=== PATIENT | male | born 1940 | race Caucasian/White ===

== ENCOUNTER 2017-06-30 05:55 | Inpatient (IN) | payer MEDICARE ==
[2017-06-30] VITALS (13 sets, daily range): BP systolic 113–138; BP diastolic 72–90; PULSE 70–82; RESP 13–20; O2SAT 88–98
[~2017-06-30] VITALS: Ht 180.3 cm; Wt 104.2 kg
[~2017-06-30 05:55] MED LIST: ATEN50TA PO; HYDR-3825 PO; Lactated Ringer's 1,000 ML IV SCH; NABU750T PO; SIMV10TA4 PO
[2017-06-30] MEDS: DEXTROSE 5% IV SCH ×2 (06:00→07:44)
[2017-06-30] MEDS ORDERED: Ampicillin-Sulbactam 3,000 mg/100 mL NS IV ONE ×2 (06:00)
[2017-06-30] MEDS: GENTAMICIN IV SCH ×2 (06:00→07:44)
[2017-06-30] MEDS ORDERED: Lactated Ringer's 1,000 ML IV ONE ×3 (06:19→16:10)
[2017-06-30] MEDS ORDERED: Dexamethasone 4 mg/mL Inj ONE (07:00)
[2017-06-30] MEDS ORDERED: Ondansetron 2 mg/mL 2 mL Inj ONE (07:00)
[2017-06-30] MEDS ORDERED: Vasopressin 20 Unit/mL Inj ONE (07:00)
[2017-06-30] MEDS ORDERED: Rocuronium 10 mg/mL 5 mL Inj ONE (07:00)
[2017-06-30] MEDS ORDERED: fentaNYL-PF 50 mCg/mL 2 mL Inj ONE (07:00)
[2017-06-30] MEDS ORDERED: MeTOProlol 1 mg/mL 5 mL Inj ONE (07:00)
[2017-06-30] MEDS ORDERED: HYDROmorphone 1 mg/mL Inj ONE (07:00)
[2017-06-30] MEDS ORDERED: Propofol 10 mg/mL 20 mL Inj ONE (07:00)
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
[2017-06-30] MEDS ORDERED: Lactated Ringer's 1,000 ML IV SCH (08:45)
[2017-06-30] MEDS ORDERED: MetoCLOpramide 5 mg/mL 2 mL Inj IVPUSH PRN (08:45)
[2017-06-30] MEDS ORDERED: EPHEDrine Sulfate 50 mg/mL Inj IVPUSH PRN (08:45)
[2017-06-30] MEDS ORDERED: Phenylephrine 10,000 mCg/mL Inj IVPUSH PRN (08:45)
[2017-06-30] MEDS ORDERED: Dexamethasone 4 mg/mL Inj IVPUSH PRN (08:45)
[2017-06-30] MEDS ORDERED: Lactated Ringer's 500 ML IV PRN (08:45)
[2017-06-30] MEDS ORDERED: Ondansetron 2 mg/mL 2 mL Inj IVPUSH PRN (08:45)
[2017-06-30] MEDS ORDERED: Bupivacaine-MPF 0.5% 30 mL Inj INFILTRATE ONE (09:04)
[2017-06-30 10:21] LABS: APPEARANCE,URINE HAZY (CLEAR,HAZY); COLOR,URINE YELLOW (YELLOW); OCCULT BLOOD,URINE NEGATIVE (NEGATIVE)
[2017-06-30 10:23] LABS: UROBILINOGEN,URINE NORMAL (NORMAL)
--- NOTE | 2017-06-30 15:42 | PCM.ANEP1 ---
Post Anesthesia PACU Phase 1 Assessment Anesthetic Administered: GA Level of Alertness: Drowsy, not talking Pain: No Nausea or Vomiting: No CV Function & Hydration Stable: Yes Airway Device: Oxygen Delivery: Simple Mask Lungs: Clear to Auscultation, Normal Air Movement Dermatome Level: Full Sensation PACU Phase 2 Assessment Complications: No Follow up Care: No Patient Instructions Provided: N/A Flex Hwang MD Jun 30, 2017 15:42
[2017-06-30] MEDS: fentaNYL-PF 50 mCg/mL 2 mL Inj IVPUSH PRN ×3 (15:57→17:00)
--- NOTE | 2017-06-30 15:59 | PCM.SURGPO ---
Immediate Operative Note Date of Surgery: Jun 30, 2017 Pre Operative Diagnosis L renal mass Post Operative Diagnosis L renal mass Procedure L laparoscopic radical nephrectomy (modifier 22) Surgeon and Scruff Worker Surgeon: David Baer MD Assistants: Natasha Loo MD; Reshma Garcia Findings No gross extension of tumor seen outside of L kidney. L laparoscopic radical nephrectomy was performed. Of note, case was very difficult secondary to significant amount of fibrosis seen around kidney and complex renal hilum. Complications There were no periprocedural complications identified. Surgical Specimen Removed: Yes Specimen sent to Pathology: Yes Surgical Specimen description: L kidney Anesthetic Administered: GA Grafts, Implants: Other (16F Hernandez catheter to straight drainage) Output, Estimated Blood Loss: 400 Blood Admin during surgery: No Additional information Patient to be transferred to [facility] when stable. David Baer MD Jun 30, 2017 15:59
[2017-06-30] MEDS: HYDROmorphone 1 mg/mL Inj IVPUSH PRN ×3 (16:08→16:41)
[2017-06-30 16:35] LABS: Mean Corpuscular Hemoglobin 28.8 pg (27.0-35.0); Mean Corpuscular Volume 90.9 fL (81-100)
[2017-06-30] MEDS: 0.9% Sodium Chloride 1,000 ML IV SCH (16:44)
[2017-06-30] MEDS ORDERED: CHOL200047 PO (18:02)
[2017-06-30] MEDS ORDERED: FISH1CAP15 PO (18:02)
[2017-06-30] MEDS ORDERED: VIT1TABL83 PO (18:03)
[2017-06-30] MEDS ORDERED: VITA400C64 PO (18:03)
[2017-06-30] MEDS ORDERED: MULT-666 PO (18:03)
[2017-06-30] MEDS ORDERED: ASCO-294 PO (18:03)
[2017-06-30] MEDS ORDERED: UBID300C PO (18:05)
[2017-06-30] MEDS ORDERED: MAGN400C PO (18:05)
--- NOTE | 2017-06-30 18:06 | NUR ---
Received from OR Patient transferred from OR. Report received from PACU nurse. Patient is returning from a left lap nephrectomy. Patient is drowsy, but easily woken. Hernandez catheter intact and patent, draining clear yellow urine. Patient has multiple lap sits on his left abdomen. Dressed with steri-strips and Telfa, clean/dry/intact. O2 @ 4L. Current diet is NPO with sips of water and ice. Progress to clear liquid diet in AM. Patient has some redness and swelling on his right cheek and around his eyes. No pain at this time.
--- NOTE | 2017-06-30 18:13 | NUR ---
Admit nurse note Admission assessment completed with 's assistance. Pt. c/o 8/10 pain. He is resting quietly. Med history obtained from chart and verified with . Nonslip socks in place. Pt. oriented to room, call fraga and fall precautions. ANDRIY ureña. Report given to Yousuf Soria.
[2017-06-30] MEDS: oxyCODONE-Acetamin 5-325 mg Tablet PO PRN (18:25)
[2017-06-30] MEDS: Ampicillin-Sulbactam Inj 3,000 MG in 0.9% Sodium Chloride 100 ML IV SCH ×2 (18:25→22:54)
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
--- NOTE | 2017-06-30 21:27 | DRSVH ---
PROCEDURE: X-RAY CHEST ONE VIEW, PORTABLE ([id number]) INDICATIONS: HYPOXIA TECHNIQUE: One view of the chest was acquired. COMPARISON: [facility], CT, ABDOMEN W&WO CONTRAST, 05/09/2017, 8:05. Outside Facility, RG, XR C XR 1V, 01/11/2017, 13:56. [facility], CR, CHEST 2 VIEW, 02/15/2017, 13:57. FINDINGS: Surgical changes and devices: None. Lungs and pleura: No pleural effusions or pneumothorax. Low lung volumes and scattered atelectasis. No focal consolidation. Probable bowel loop projecting in the medial right upper quadrant Mediastinum: Mediastinal contours appear normal. Heart size is normal. Bones and chest wall: No suspicious bony lesions. Overlying soft tissues appear unremarkable. Bila teral shoulder joint degeneration IMPRESSION: Low lung volumes and scattered scarring/atelectasis. Dictated by: Douglas Peterson M.D. on 06/30/2017 at 21:18 Approved by: Douglas Peterson M.D. on 06/30/2017 at 21:26
[2017-06-30] MEDS: Morphine PCA 1 mg/mL 30 mL Inj IV PRN (22:11)
[2017-06-30] MEDS ORDERED: 0.9% Sodium Chloride 100 ML ONE (22:32)
[2017-07-01] VITALS (9 sets, daily range): BP systolic 102–137; BP diastolic 65–87; PULSE 60–91; RESP 16–28; O2SAT 92–97
[2017-07-01] MEDS: 0.9% Sodium Chloride 1,000 ML IV SCH ×4 (01:48→21:26)
[2017-07-01 05:27] LABS: Mean Corpuscular Volume 90.8 fL (81-100)
[2017-07-01] MEDS: Ampicillin-Sulbactam Inj 3,000 MG in 0.9% Sodium Chloride 100 ML IV SCH ×3 (06:39→16:09)
--- NOTE | 2017-07-01 07:28 | PCM.PNSURG ---
Subjective Visit Information: Reason for Visit Left Renal Mass Surgery/Surgery Date Post-Op Day # Date of Admission: Jun 30, 2017 at 17:29 Hospital Day # Objective Vital Sign- Last 8 Hours Date Time Temp Pulse Resp B/P Pulse Ox O2 Delivery O2 Flow Rate FiO2 07/01/17 04:46 36.8 68 28 105/67 97 Nasal Cannula 4.00 07/01/17 00:32 36.9 67 20 102/66 97 Nasal Cannula 4.00 Intake and Output- Last 8 Hour 07/01/17 Cumulative From/Thru 07:00 06/24/17 14:26 - 07/01/17 01:16 Intake Total 130 ml 1935 ml Output Total 900 ml Balance 130 ml 1035 ml Intake IV Total 130 ml 1935 ml Output Urine Total 100 ml Estimated Blood Loss 800 ml Result Diagram: 07/01/17 0455 07/01/17 0455 Assessment & Plan VTE Prophylaxis: SCDs Resuscitation Status: CPR: Attempt Resuscitation David Baer MD Jul 01, 2017 07:28
--- NOTE | 2017-07-01 07:59 | NUR ---
Pain Pt reported pain 8/10, oral percocet had been given upon arrival to unit. MD phoned and stated use the DRIVER [employer]IC morphine. Set up, Pt was given IV push dose prior to set up with + results, after starting DR[employer] Pt pain controlled at 5/10. Pt on CPOx and 3-4L o2.Sat 94-96%. at bedside. Pt tolerating clear diet. Care continues
[2017-07-01] MEDS ORDERED: Sodium Biphos-Phos 133 mL Enema RECTAL ONE (12:00)
--- NOTE | 2017-07-01 14:04 | NUR ---
Gas Pain Contacted Dr. Casiano with the following cook page: Patient reports gas pain, but no flatulence, he is requesting medication for the gas pain. No nausea at this time, he stated Reglan does not work. Please advise. Lori [facility] ext [phone]
[2017-07-01] MEDS: Polyethylene Glycol (PEG) 17 Gm Powder PO PRN (14:36)
[2017-07-01] MEDS: Ondansetron 2 mg/mL 2 mL Inj IVPUSH PRN (14:36)
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
[2017-07-01] MEDS: Morphine PCA 1 mg/mL 30 mL Inj IV PRN (15:59)
[2017-07-01] MEDS: Alum-Mag Hydrox-Simeth 30 mL Suspension PO PRN (16:09)
--- NOTE | 2017-07-01 16:15 | PCM.PNSURG ---
Subjective Date of Service: Jul 01, 2017 Date of Service: Jul 01, 2017 Subjective: Patient reports abdominal incisional pain and chronic midline back pain (well- controlled on IV BACK MAKER), no nausea, no vomiting, tolerating small amount of clears , has not passed flatus or had a BM yet, has not been OOB yet. Of note, patient was seen this morning. Objective Vital Sign- Last 8 Hours Date Time Temp Pulse Resp B/P Pulse Ox O2 Delivery O2 Flow Rate FiO2 07/01/17 09:04 36.2 91 22 118/67 93 Nasal Cannula 4.00 07/01/17 08:45 Supplement Oxygen 07/01/17 08:45 16 92 Intake and Output- Last 8 Hour 07/01/17 Cumulative From/Thru 07:00 06/24/17 14:26 - 07/01/17 01:16 Intake Total 130 ml 1935 ml Output Total 900 ml Balance 130 ml 1035 ml IV Total 130 ml 1935 ml Output Urine Total 100 ml Estimated Blood Loss 800 ml Hernandez catheter urine output: 1750ml last 8hr. shift General: Alert, Oriented X3, Cooperative, No Acute Distress Neck: Supple Lungs: Normal Air Movement Abdomen: Other (soft, mildly distended, appropriate incisional tenderness, no palpable masses, no rebound, no guarding) SURGICAL WOUND : Wound Location/Description Dressings clean/dry/intact Extremities: Other (+SCD boots) Neuro: Normal Speech, Sensation Intact Catheters: Urethral 2 Way Hernandez (in place, draining clear yellow urine) Result Diagram: 07/01/17 0455 07/01/17 0455 Assessment & Plan Impression POD #1, s/p L laparoscopic radical nephrectomy, afebrile, hemodynamically stable , with excellent urine output, with labs this AM showing Hct mildly decreased to 33.5 and Cr slightly increased to 1.26 Problems: Plan Continue clears (until patient passes flatus) Continue IVF Continue IV BACK MAKER Encourage incentive spirometry 10x/hr. while awake and cough and deep breathing Q2h while awake Encourage OOB to chair this AM, then ambulation with assistance this PM Continue Hernandez catheter to straight drainage (until patient is ambulatory) Continue SCD boots Check labs (CBC, BMP) in AM Hospitalist consultation appreciated VTE Prophylaxis: SCDs Resuscitation Status: CPR: Attempt Resuscitation David Baer MD Jul 01, 2017 16:15
[2017-07-02] VITALS (10 sets, daily range): BP systolic 105–143; BP diastolic 64–88; PULSE 64–69; RESP 16–20; O2SAT 92–96
[2017-07-02] MEDS: Ondansetron 2 mg/mL 2 mL Inj IVPUSH PRN ×3 (06:20→19:44)
[2017-07-02] MEDS: Alum-Mag Hydrox-Simeth 30 mL Suspension PO PRN (06:33)
--- NOTE | 2017-07-02 06:43 | NUR ---
IV site IV temperamental and alarming throughout beginning of shift. Patient denied need of assistance with repositioning, or any other comfort measures with rounding, or was sleeping. This am IV site noticeably swollen, IV stopped and began nursing interventions. Arm elevated, warm blankets wrapped around arm, hot pad applied. Attempt to reach IV therapy made, unsuccessful. IV removed. Will continue to monitor.
[2017-07-02 07:04] LABS: Mean Corpuscular Volume 89.9 fL (81-100)
[2017-07-02] MEDS: oxyCODONE-Acetamin 5-325 mg Tablet PO PRN (07:23)
[2017-07-02] MEDS: 0.9% Sodium Chloride 1,000 ML IV SCH ×2 (08:44→16:44)
--- NOTE | 2017-07-02 09:35 | DRSVH ---
PROCEDURE: X-RAY CHEST ONE VIEW, PORTABLE ([id number]) INDICATIONS: shortness of breath TECHNIQUE: One view of the chest was acquired. COMPARISON: [facility], CR, XR CHEST 1VW (PORTABLE), 06/30/2017, 20:45. FINDINGS: Surgical changes and devices: None. Lungs and pleura: Poor inspiratory effort is present. Streaky opacities are present within the right base, likely atelectasis. There is increased appearance of retrocardiac/left basilar opacity compared to prior exam. Mediastinum: Mediastinal contours appear normal. Heart size is normal. Bones and chest wall: No suspicious bony lesions. Overlying soft tissues appear unremarkable. IMPRESSION: Increased left basilar/retrocardiac opacity, suggestive of progressive atelectasis/develo ping pneumonia. Dictated by: Robyn Hodges M.D. on 07/02/2017 at 9:32 Approved by: Robyn Hodges M.D. on 07/02/2017 at 9:33
--- NOTE | 2017-07-02 10:00 | OP ---
[address] [address] OPERATIVE REPORT PATIENT: DYLAN LIRA : 1940 MR#: [id number] ADMIT: 06/30/2017 JOB ID: [id number] DATE OF SURGERY: 06/30/2017 PREOPERATIVE DIAGNOSIS(ES): Left renal mass. POSTOPERATIVE DIAGNOSIS(ES): Left renal mass. PROCEDURE: Left laparoscopic radical nephrectomy (modifier 22). SURGEON: David Baer M.D. CODING COMPLIANCE MANAGER: Reshma Rush ANESTHESIA: General endotracheal anesthesia. IV FLUIDS: 1800 mL ESTIMATED BLOOD LOSS: 400 mL. URINE OUTPUT: 315 mL. SPECIMENS: Left kidney. DRAINS: A 16-Nigerian Hernandez catheter to straight drainage. COMPLICATION: None. CONDITION: Stable. FINDINGS: No gross extension of tumor was seen outside of left kidney. Left laparoscopic radical nephrectomy was performed. Of note, the case was very difficult secondary to significant amount of fibrosis around the renal hilum and secondary to complex renal hilum. INDICATIONS: The patient is a 76-year-old male with a left renal mass with CT scan showing an approximately 4.5-5 cm enhancing suspicious left upper pole renal mass which was highly suspicious for renal cell carcinoma. The patient now presents for left laparoscopic radical nephrectomy. Of note, the skilled assistance of Dr. Natasha Loo and physician curriculum assistant, Reshma Garcia was necessary for the successful completion of this case. They were essential for proper visualization and for wound closure during the case. Of note, Dr. Loo assisted me during the initial and mid portions of the case and LUI Garcia subsequently assisted me during the latter portion of the case. DESCRIPTION OF PROCEDURE: The patient was brought to the operating room and placed supine on the operating room table. The patient was given Unasyn and gentamicin IV antibiotics. Sequential compression device boots were placed. The patient underwent general endotracheal anesthesia. A 16-Nigerian Hernandez catheter was placed through the urethra, and into the bladder under sterile conditions without difficulty. Hernandez catheter balloon was inflated with 10 mL sterile water. Hernandez catheter was placed to straight drainage. The patient was placed in modified lateral decubitus position, left side up. All pressure points were padded. The patient was secured to the table with 3-inch cloth tape. The patient's left flank and left abdomen were prepped and draped in a standard surgical fashion. A Garcia trocar placement was performed. A 12 mm incision in the supraumbilical area just superior to the umbilicus in the midline was made through the skin sharply. This was a vertical incision. This incision was carried through subcutaneous tissue using Bovie electrocautery. The fascia was identified and incised using Bovie electrocautery. Then 0-Vicryl sutures were placed, one on each side of the fascia as holding sutures. The muscle layer was split. The peritoneum was identified, and the peritoneum was incised. Access to the peritoneum was obtained. A blunt tip balloon Anna trocar was placed into the peritoneal cavity. The abdomen was insufflated with 15 mmHg carbon dioxide. Four-quadrant insufflation was seen. The abdomen was inspected and there was no evidence of injury to the abdominal contents. At this point, a 12 mm trocar was placed in the midline superior to the first trocar. Approximately snf between the first trocar and the xiphoid process, a 12 mm trocar was placed in the midline superior to the first trocar approximately half way between the first trocar and the xiphoid process. Then a 12 mm trocar was placed in the left abdomen lateral to the first trocar and this was lateral to the edge of the rectus muscle. With all the trocars placed, and insufflation to 15 mmHg, carbon dioxide obtained. The table was airplaned toward the surgeon. An incision was made in the white line of Toldt to reflect the descending colon medially to provide adequate visualization of the anterior surface of Gerota fascia. The white line of Toldt was incised from the level of the iliac vessels inferiorly, extending above the spleen superiorly. The lienocolic ligament was incised to allow the spleen to fall medially along with the pancreas and the colon. Medial retraction of the colon revealed colorenal attachments that were divided to complete retraction of the colon medially. Dissection was performed using surgeon one Thunderbeat blunt-tip grasper and right angle dissector during the case. The peritoneal attachments between the spleen and upper pole were taken down. The aorta was identified, as well as the left renal vein and the left gonadal vein. The colon was thus freed. The psoas muscle and psoas tendon were identified. The gonadal vessels were swept laterally and the ureter was identified. The ureter was located posterior to the gonadal vein and anterior to the psoas muscle. All attachments to the lower pole were dissected off anteriorly from the psoas muscle and divided. The left gonadal vein was ligated using Hem-O-Jessi clips and divided using Thunderbeat. With the lower pole attachment divided, the medial and posterior dissection was begun. The ureter was elevated and traced proximally to identify the left renal hilum. A grasper was placed beneath Gerota fascia in the lower pole along the psoas muscle to lift the specimen superolaterally. The inferior and posterior sidewall attachments were divided. Traction was placed on the kidney both laterally and anteriorly. All attachments between the medial aspect of the kidney and the aorta were taken down. The left renal vein was identified and dissected out from surrounding structures. The left renal vein was noted to have two large branches. With continued traction of the kidney, the left renal vein was able be identified and dissected free from surrounding structures. The left renal artery and left renal vein were ligated and divided using an endovascular DENISE stapler. A second branch of the left renal vein was ligated and divided separately using the endovascular DENISE stapler. The left ureter was ligated using Hem-O-Jessi clips and divided using the Thunderbeat. This was done inferior to the lower pole of the kidney. Of note, the case was very difficult. No gross extension of tumor was seen outside of the left kidney. Of note, the case was very difficult secondary to a significant amount of fibrosis around the renal hilum making dissection very difficult and also secondary to complex renal hilum with two large branches of the left renal vein. Thus, the case was very difficult secondary to a significant amount of fibrosis around the renal hilum and thus a modifier 22 is being applied to this case secondary to the difficulty of the case and secondary to the case taking approximately 50% longer than usual to complete. Of note the case was also very difficult secondary to complex renal hilum. Attention was now paid to performing left adrenalectomy and dissecting off the upper pole of kidney. Left adrenalectomy was performed in conjunction with the left radical nephrectomy secondary to the left upper pole renal mass being close to and adjacent to the left adrenal gland. Thus the left adrenal gland was excised together with the left kidney and left adrenalectomy was performed. With inferior traction on the kidney, the plane superior to the left adrenal gland and the upper pole of the left kidney was established and released with the help of the Thunderbeat instrument. Again the plane between Gerota fascia, which contained the left adrenal gland and the left kidney and the muscle was dissected caudally as the upper pole was lifted. This was done using the Thunderbeat instrument. Thus the left adrenal gland was excised together with the left kidney and left adrenalectomy was performed in addition to the left radical nephrectomy. Upper and lateral attachments of Gerota fascia had been incised. The only remaining attachments were laterally, which were taken down using the Thunderbeat instrument and [place]. Of note to aid in dissection of the renal hilum after the renal artery and one branch of the renal vein had been ligated and divided using the endovascular DENISE stapler. Additional significant difficulty was encountered in dissecting out the second branch of the left renal vein. Then the left adrenalectomy was performed as previously described. The upper and lateral attachments of Gerota fascia were incised. Then the second branch of the left renal vein was dissected out with significant difficulty, but was able to be dissected out and then ligated and divided using an endovascular DENISE stapler as previously described. Thus, upper and lateral attachments of Gerota fascia had been incised and the remaining attachments which were laterally had been taken down using the Thunderbeat instrument and [place]. The entire kidney was now free. There was no evidence of bleeding from the hilum or renal bed. Pneumoperitoneum was brought down to 5 mmHg carbon dioxide and mean arterial pressure was above 80 and Valsalva maneuver was performed three times and there was no evidence of bleeding seen from the renal hilum, renal bed, or any other areas. Of note prior to visual inspection of the peritoneum for bleeding, the patient had been repositioned to a full flank position via airplaning the table. No evidence of bleeding was seen. Thus left laparoscopic radical nephrectomy and left adrenalectomy were performed. 0-Vicryl sutures were placed into the fascia of the 12 mm trocar sites to close the fascia with the assistance of the Mani Vonnie device. Surgicel and FloSeal hemostatic agents were applied to the left renal bed and hilum. The initial Anna trocar was removed and an EndoCatch II bag was placed through the trocar site. The specimen was placed into the Endo Catch II bag. All instruments were removed and all trocars were removed under direct visualization. No bleeding was seen. The table was then rotated back into supine position. The initial Anna trocar incision was extended superiorly to allow extraction of the specimen. Using Bovie electrocautery, this incision was carried down through the subcutaneous tissue and fascia. The muscle was split and the peritoneum was opened using Bovie electrocautery with my finger protecting the specimen and EndoCatch II bag. The specimen within the Endo Catch II bag was brought out through the incision. The specimen was sent to pathology for permanent specimen. The fascia of this incision was closed using #1 loop PDS sutures in a running fashion, with one suture from each end starting from the corner and to the middle with two PDS sutures used in a running fashion. Najma fascia was closed using a running 3-0 Vicryl suture. The skin for each of the incisions was closed using 4-0 Monocryl sutures in a running subcuticular fashion. Prior to closure of the skin, local anesthesia was administered subcutaneously. Of note the fascia of the other 12 mm trocar sites had been closed using the previously placed 0-Vicryl sutures. And of note, during the case, a fourth trocar which was a 5 mm trocar had been placed in the left upper quadrant to aid in dissection of the renal hilum. The skin for each of the incisions was closed using 4-0 Monocryl sutures in a running subcuticular fashion. Prior to closure of the skin, local anesthesia was administered subcutaneously. The skin was cleaned and dried. Sterile dressings were applied. The patient was placed in the supine position. Hernandez catheter was left to straight drainage. The patient was awakened from general anesthesia, extubated, and transferred to the recovery room in stable condition. The patient tolerated the procedure well.
[2017-07-02] MEDS: Polyethylene Glycol (PEG) 17 Gm Powder PO PRN (12:27)
--- NOTE | 2017-07-02 12:27 | NUR ---
ANEL signed by pt at bedside
--- NOTE | 2017-07-02 13:18 | PCM.PNSURG ---
Subjective Date of Service: Jul 02, 2017 Date of Service: Jul 02, 2017 Subjective: Patient reports mildly improved abdominal incisional pain and chronic midline back pain (well-controlled on IV CLERICAL ASSIGNER), nausea (partially relieved by Zofran), no vomiting, tolerating clears, passed small amount of flatus twice this AM, has not had a BM yet, ambulated with walker within room without difficulty. Patient states he wishes to keep Hernandez catheter in for now. Objective Vital Sign- Last 8 Hours Date Time Temp Pulse Resp B/P Pulse Ox O2 Delivery O2 Flow Rate FiO2 07/02/17 12:15 36.7 64 18 130/84 92 Nasal Cannula 2.50 07/02/17 06:45 18 94 07/02/17 06:45 Supplement Oxygen 07/02/17 05:35 18 93 07/02/17 05:35 36.7 68 18 136/77 96 Nasal Cannula 3.50 Intake and Output- Last 8 Hour 07/02/17 Cumulative From/Thru 07:00 06/24/17 14:26 - 07/02/17 05:35 Intake Total 1385 ml 9451 ml Output Total 4050 ml Balance 1385 ml 5401 ml Intake Oral 3373 ml IV Total 1385 ml 6078 ml Output Urine Total 3250 ml Estimated Blood Loss 800 ml # Bowel Movements 0 Hernandez catheter urine output: 1400/1800ml last 2 8hr. shifts General: Alert, Oriented X3, Cooperative, No Acute Distress Neck: Supple Lungs: Normal Air Movement Abdomen: Other (soft, moderately distended, appropriate incisional tenderness, no palpable masses, no rebound, no guarding) SURGICAL WOUND : Wound Location/Description Dressings removed. Incisions clean/dry/intact, healing well, Steri-strips in place. Several small mildly blistered areas around incisions. Extremities: Other (+SCD boots) Neuro: Normal Speech, Sensation Intact Catheters: Urethral 2 Way Hernandez (in place, draining clear yellow urine) Result Diagram: 07/02/1765407/02/17654 Assessment & Plan Impression POD #2, s/p L laparoscopic radical nephrectomy, afebrile, hemodynamically stable , with excellent urine output, with labs this AM showing Hct increased to 38.1 and Cr slightly decreased to 1.19, awaiting bowel function Problems: Plan Continue clears (patient advised to have only small amounts of clears) Continue IVF Continue IV CLERICAL ASSIGNER. Encourage PO > IV pain meds Anti-emetics PRN Start bowel regimen (MOM, mineral oil, Dulcolax) Start Silvadene cream Encourage incentive spirometry 10x/hr. while awake and cough and deep breathing Q2h while awake Encourage OOB to chair and ambulation Continue Hernandez catheter to straight drainage Continue SCD boots Check labs (CBC, BMP) in AM Hospitalist follow-up appreciated VTE Prophylaxis: SCDs Resuscitation Status: CPR: Attempt Resuscitation David Baer MD Jul 02, 2017 13:18
[2017-07-02] MEDS ORDERED: Promethazine 25 mg/mL Inj IV PRN (13:30)
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
[2017-07-02] MEDS: Promethazine Inj 25 MG in 0.9% Sodium Chloride 50 ML IV PRN ×2 (14:58→22:07)
[2017-07-02] MEDS: Mineral Oil-Heavy 30 mL UDC PO SCH ×2 (14:58→20:41)
[2017-07-02] MEDS: Magnesium Hydroxide 10 mL Oral Concentration PO SCH ×2 (15:05→20:41)
[2017-07-02] MEDS: MetoCLOpramide 5 mg/mL 2 mL Inj IVPUSH PRN (16:44)
[2017-07-02] MEDS: Morphine PCA 1 mg/mL 30 mL Inj IV PRN (16:53)
--- NOTE | 2017-07-02 18:34 | NUR ---
Nausea, Ambulation Patient continues to have some nausea intermittently this shift. Patient ambulation increased, patient walking to bathroom as well as bedside chair using front wheel walker. Care is ongoing.
[2017-07-02] MEDS: HYDROcodone-APAP 10-325 mg PO PRN (22:08)
[2017-07-03] VITALS: RESP 16
[2017-07-03] MEDS: 0.9% Sodium Chloride 1,000 ML IV SCH ×3 (00:59→16:56)
[2017-07-03] MEDS: HYDROcodone-APAP 10-325 mg PO PRN ×5 (01:15→22:32)
--- NOTE | 2017-07-03 03:43 | NUR ---
AGED OR DISABLED CARER, nausea Pt is alert and oriented, and able to make needs known. NO changes in LOC noted. Pleasant and cooperative with care. c/o nausea x2 this shift. Zofran admin x1 and phenergan admin x1 with good relief and no episode of emesis so far. Pt educated on use of PO pain and less use of the AGED OR DISABLED CARER machine and pt verbalized understanding. PO [place] 10-325mg one tab admin x2 this shift with good relief. No push of the AGED OR DISABLED CARER so far. Pt is sleeping soundly in bed with continuous pulse in place at 90-92% on 2l oxygen via nc. care continues. Addendum: 07/03/17 at 0647 by ERIC ALVAREZ RN addendum: Pt with one episode of emesis, greenish color of a bile about 500cc. Reglan prn IV push admin with good relief. Pt observed sleeping after anti medical anthropologist. Care continues.
[2017-07-03] MEDS: MetoCLOpramide 5 mg/mL 2 mL Inj IVPUSH PRN ×2 (04:06→15:57)
[2017-07-03 04:10] VITALS: RESP 18
[2017-07-03 05:42] VITALS: BP 121/85; PULSE 80; RESP 20; O2SAT 97
[2017-07-03 06:51] LABS: Mean Corpuscular Hemoglobin 29.1 pg (27.0-35.0); Mean Corpuscular Volume 89.1 fL (81-100)
[2017-07-03] MEDS: Promethazine Inj 25 MG in 0.9% Sodium Chloride 50 ML IV PRN ×2 (07:25→23:39)
[2017-07-03 08:19] VITALS: BP 132/86; PULSE 82; RESP 20; O2SAT 93
[2017-07-03] MEDS ORDERED: Sodium Biphos-Phos 133 mL Enema RECTAL PRN (08:20)
--- NOTE | 2017-07-03 08:27 | NUR ---
N/V with Emesis IV Phenagren given this morning as ordered; pt awoke with N/V, 500ccs bright green emesis noted. Care ongoing. 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 Care ongoing.
[2017-07-03] MEDS: Senna-Docusate 8.6-50 mg Tablet PO SCH ×3 (08:34→20:19)
[2017-07-03] MEDS: Polyethylene Glycol (PEG) 17 Gm Powder PO SCH ×2 (08:35→09:32)
[2017-07-03] MEDS: Ondansetron 2 mg/mL 2 mL Inj IVPUSH PRN ×3 (08:44→20:19)
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
--- NOTE | 2017-07-03 11:50 | NUR ---
Enema/BM Enema given this morning as ordered; pt had medium size loose BM. Pt states, "feel better. Still have small waves of nausea come over me but subsiding with small sips of water." Abdominal area still looks taunt and firm even after BM. Abdominal x-ray ordered today. Dr Baer to see pt early this afternoon. Care ongoing.
--- NOTE | 2017-07-03 12:00 | NUR ---
PO Mineral Oil Per MD concerns about possible n/v due to PO Mineral Oil given previous NOC shift; will discuss with surgeon when he comes in. Care ongoing.
--- NOTE | 2017-07-03 12:08 | DRSVH ---
PROCEDURE: X-RAY ABDOMEN, ONE VIEW ([id number]) INDICATIONS: evaluate ileus TECHNIQUE: One view of the abdomen acquired. COMPARISON: [facility], CR, XR CHEST 1VW (PORTABLE), 07/03/2017, 10:12. [facility], CT, ABDOMEN W&WO CONTRAST, 05/09/2017, 8:05. FINDINGS: Surgical changes and devices: None. Bowel: There are gas-distended loops of small and large bowel as well as the stomach. There is prob able gas within the rectum. Soft tissues: There is left retrocardiac consolidation within the visualized lung bases with a small left pleural effusion. No suspicious abdominal calcifications. Bones: No suspicious bony lesions. IMPRESSION: 1. Gaseous distention of the stomach and the small and large bowel compatible with history of ileus. 2. Left retrocardiac consolidation and small left pleural effusion. Dictated by: Guillermo George M.D. on 07/03/2017 at 12:05 Approved by: Guillermo George M.D. on 07/03/2017 at 12:07
--- NOTE | 2017-07-03 12:09 | DRSVH ---
PROCEDURE: X-RAY CHEST ONE VIEW, PORTABLE ([id number]) INDICATIONS: hypoxia TECHNIQUE: One view of the chest was acquired. COMPARISON: [facility], CR, XR CHEST 1VW (PORTABLE), 07/02/2017, 5:43. FINDINGS: Surgical changes and devices: None. Lungs and pleura: There is a persistent small left pleural effusion with left retrocardiac consolida tion associated with air bronchograms. There is also mild medial right basilar consolidation or atel ectasis. Mediastinum: Mediastinal contours appear unchanged. Heart size is normal. Bones and chest wall: No suspicious bony lesions. Overlying soft tissues appear unremarkable. IMPRESSION: 1. Persistent small left pleural effusion with left retrocardiac consolidation suggestive of pneumon ia. There may also be a component of bibasilar atelectasis. Dictated by: Guillermo George M.D. on 07/03/2017 at 12:07 Approved by: Guillermo George M.D. on 07/03/2017 at 12:08
[2017-07-03 13:00] VITALS: BP 126/80; PULSE 75; RESP 18; O2SAT 90
--- NOTE | 2017-07-03 14:37 | PCM.PNSURG ---
Subjective Date of Service: Jul 03, 2017 Date of Service: Jul 03, 2017 Subjective: Patient had nausea and vomiting this AM. Patient presently reports improved abdominal incisional pain and chronic midline back pain (well-controlled on PO [place]), improved nausea (minimal, relieved by anti-emetics), no vomiting (none since this AM), tolerating clears, has been passing large amounts of flatus and had 4 loose BM's today, ambulated in the hallway with assistance without difficulty earlier today. Patient reports no shortness of breath, occasional minimal non-productive cough. Patient states he wishes to keep Hernandez catheter in for now. Objective Vital Sign- Last 8 Hours Date Time Temp Pulse Resp B/P Pulse Ox O2 Delivery O2 Flow Rate FiO2 07/03/17 13:00 36.8 75 18 126/80 90 Room Air 07/03/17 08:19 36.4 82 20 132/86 93 Nasal Cannula 2.50 Intake and Output- Last 8 Hour 07/03/17 Cumulative From/Thru 07:00 06/24/17 14:26 - 07/03/17 06:37 Intake Total 1967 ml 00724 ml Output Total 525 ml 6825 ml Balance 1442 ml 8008 ml Intake Oral 400 ml 5961 ml IV Total 1567 ml 8872 ml Output Urine Total 325 ml 5825 ml Emesis 200 ml 200 ml Estimated Blood Loss 800 ml # Bowel Movements 0 0 Hernandez catheter urine output: 450/325ml last 2 8hr. shifts General: Alert, Oriented X3, Cooperative, No Acute Distress Neck: Supple Lungs: Normal Air Movement Abdomen: Other (soft, mild-moderately distended (mildly improved from yesterday ), appropriate incisional tenderness, no palpable masses, no rebound, no guarding) SURGICAL WOUND : Wound Location/Description Incisions clean/dry/intact, healing well, Steri-strips in place. Several small mildly blistered areas around incisions. Extremities: Other (+SCD boots) Neuro: Normal Speech, Sensation Intact Catheters: Urethral 2 Way Hernandez (in place, draining clear yellow urine) Result Diagram: 07/03/1744 07/03/1744 Diagnostics: Abdominal X-ray (07/03/17 AM): gas-distended loops of small and large bowel and stomach (consistent with ileus), probable gas within rectum, no evidence for bowel obstruction Assessment & Plan Impression POD #3, s/p L laparoscopic radical nephrectomy, afebrile, hemodynamically stable , with good urine output, with labs this AM showing Hct increased to 42.6, normal WBC (8.0), and Cr slightly increased to 1.27, with post-op ileus ( abdominal X-ray this AM showed gas-distended loops of small and large bowel and stomach (consistent with ileus), probable gas within rectum, no evidence for bowel obstruction), presently with improving ileus (passing large amounts of flatus and having loose BM's today) Problems: Plan Continue clears 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 Continue PO [place] PRN (IV Morphine sulfate PRN breakthrough pain). Continue anti-emetics PRN Continue bowel regimen Continue Silvadene cream Encourage incentive spirometry 10x/hr. while awake and cough and deep breathing Q2h while awake Encourage OOB to chair and ambulation Continue Hernandez catheter to straight drainage for now (likely can be removed tomorrow AM) Continue SCD boots Check labs (CBC, BMP) in AM Hospitalist Dr. Casiano's follow-up appreciated Case discussed with Dr. Casiano VTE Prophylaxis: SCDs Resuscitation Status: CPR: Attempt Resuscitation David Baer MD Jul 03, 2017 14:37
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
[2017-07-03] MEDS ORDERED: Magnesium Hydroxide 10 mL Oral Concentration PO PRN (15:30)
[2017-07-03] MEDS ORDERED: Mineral Oil-Heavy 30 mL UDC PO PRN (15:30)
--- NOTE | 2017-07-03 16:51 | NUR ---
Hernandez Discontinued Per pt request, c/o pain "the end is getting sore where the tube goes in, would like to remove catheter before tomorrow morning." Hernandez cath discontinued; care ongoing.
[2017-07-03 20:35] VITALS: BP 113/75; PULSE 74; RESP 21; O2SAT 99
[2017-07-04] MEDS: 0.9% Sodium Chloride 1,000 ML IV SCH ×3 (01:04→18:37)
[2017-07-04] MEDS: MetoCLOpramide 5 mg/mL 2 mL Inj IVPUSH PRN (03:33)
[2017-07-04 04:38] VITALS: BP 113/73; PULSE 65; RESP 20; O2SAT 94
--- NOTE | 2017-07-04 05:08 | NUR ---
GI Pt alert, oriented and able to make needs known. No changes in LOC noted. Pleasant and cooperative. Pt able to void with no issue r/t post f/c d/c. using urinal with 350cc output so far. One medium diarrhea on this shift. laxative suppository offered but pt declined. Medicated with prn norco this shift with good relief. Pt is resting comfortably in bed and call light w/in reach. Care continues.
[2017-07-04] MEDS: Polyethylene Glycol (PEG) 17 Gm Powder PO SCH ×2 (08:30→09:14)
[2017-07-04] MEDS: Senna-Docusate 8.6-50 mg Tablet PO SCH ×2 (08:30→20:30)
[2017-07-04 08:35] VITALS: BP 108/73; PULSE 72; RESP 18; O2SAT 93
[2017-07-04] MEDS: HYDROcodone-APAP 10-325 mg PO PRN ×4 (09:00→23:43)
[2017-07-04 09:24] LABS: BASOPHILS % (AUTO) 0.2 % (0-3); MONOCYTES % (AUTO) 12.9 % (4-12); Mean Corpuscular Hemoglobin 29.1 pg (27.0-35.0); Mean Corpuscular Volume 89.9 fL (81-100); NEUTROPHILS % (AUTO) 54.9 % (40-74); Platelet Count 131 bil/L (150-400)
--- NOTE | 2017-07-04 10:03 | NUR ---
IV Fluids/Diet Change Per Dr Baer IV NS decreased to 75mls/hr; per pt request of "real food" pt would like to try a "bland diet for lunch." New orders to follow. Care ongoing.
[2017-07-04 12:48] VITALS: BP 109/61; PULSE 74; RESP 16; O2SAT 91
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
--- NOTE | 2017-07-04 13:28 | PCM.PNSURG ---
Subjective Date of Service: Jul 04, 2017 Date of Service: Jul 04, 2017 Subjective: Patient presently reports improved abdominal incisional pain and chronic midline back pain (well-controlled on PO [place]), resolved nausea (none since last night), no vomiting (none since yesterday AM), tolerating small amounts of soft, bland diet, passing flatus, having loose BM's, ambulating in hallway without difficulty. Patient reports no shortness of breath, occasional minimal non-productive cough. Hernandez catheter was removed yesterday afternoon, and patient has been able to void without difficulty. Objective Vital Sign- Last 8 Hours Date Time Temp Pulse Resp B/P Pulse Ox O2 Delivery O2 Flow Rate FiO2 07/04/17 12:48 36.8 74 16 109/61 91 Room Air 07/04/17 08:35 36.7 72 18 108/73 93 Room Air 07/04/17 08:35 Supplement Oxygen Intake and Output- Last 8 Hour 07/04/17 Cumulative From/Thru 07:00 06/24/17 14:26 - 07/04/17 05:00 Intake Total 1573 ml 36120 ml Output Total 8475 ml Balance 1573 ml 36156 ml Intake Oral 7381 ml IV Total 1573 ml 73247 ml Output Urine Total 6275 ml Emesis 1400 ml Estimated Blood Loss 800 ml # Bowel Movements 4 Voided urine output: 450/350ml last 2 8hr. shifts General: Alert, Oriented X3, Cooperative, No Acute Distress Neck: Supple Lungs: Normal Air Movement Abdomen: Other (soft, mildly distended (mildly improved from yesterday), appropriate incisional tenderness, no palpable masses, no rebound, no guarding) SURGICAL WOUND : Wound Location/Description Incisions clean/dry/intact, healing well, Steri-strips in place. Several small mildly blistered areas around incisions --> healing Extremities: Other (+SCD boots) Neuro: Normal Speech, Sensation Intact Catheters: None Result Diagram: 07/04/1745 07/04/1745 Assessment & Plan Impression POD #4, s/p L laparoscopic radical nephrectomy, afebrile, hemodynamically stable , with good urine output, with labs this AM showing Hct mildly decreased to 37.4 and Cr slightly decreased to 1.21, with post-op ileus (abdominal X-ray yesterday AM showed gas-distended loops of small and large bowel and stomach ( consistent with ileus), probable gas within rectum, no evidence for bowel obstruction), presently with resolved ileus Problems: Plan Continue soft, bland, heart healthy diet Decrease IVF to 75ml/hr Continue PO [place] PRN Continue bowel regimen Continue Silvadene cream Encourage incentive spirometry 10x/hr. while awake and cough and deep breathing Q2h while awake Encourage OOB to chair and ambulation Continue SCD boots Check labs (CBC, BMP) in AM Hospitalist Dr. Casiano's follow-up appreciated Patient likely will be able to be discharged home tomorrow (as long as patient is medically clear for discharge home) VTE Prophylaxis: SCDs Resuscitation Status: CPR: Attempt Resuscitation David Baer MD Jul 04, 2017 13:28
[2017-07-04] MEDS: Ondansetron 2 mg/mL 2 mL Inj IVPUSH PRN ×3 (16:53→23:41)
--- NOTE | 2017-07-04 17:15 | NUR ---
Zofran Pt c/o N/V this evening before dinner time; no emesis. 4mg IV Zofran given. Care ongoing.
[2017-07-04 19:45] VITALS: BP 163/90; PULSE 64; RESP 17; O2SAT 95
[2017-07-05] MEDS: HYDROcodone-APAP 10-325 mg PO PRN ×4 (03:45→17:12)
[2017-07-05 04:50] VITALS: BP 107/66; PULSE 59; RESP 18; O2SAT 98
--- NOTE | 2017-07-05 05:44 | NUR ---
Nausea Patient continued to complain of mild nausea at beginning of shift. Zofran given. Patient stated he had no further nausea. Patient placed on 1L O2 while sleeping, at 92%. Patient's SPO2 was dropping without it. Pulse ox. on ear. Patient states pain is well managed with current medication, 1 tablet [place] q4hr. Vitals stable. Care continues.
[2017-07-05] MEDS: 0.9% Sodium Chloride 1,000 ML IV SCH (06:24)
[2017-07-05 06:41] LABS: Mean Corpuscular Volume 89.8 fL (81-100)
[2017-07-05 08:12] VITALS: BP 123/54; PULSE 66; RESP 18; O2SAT 97
[2017-07-05] MEDS: Polyethylene Glycol (PEG) 17 Gm Powder PO SCH (08:36)
[2017-07-05] MEDS: Senna-Docusate 8.6-50 mg Tablet PO SCH (08:36)
[2017-07-05 12:07] VITALS: O2SAT 96
--- NOTE | 2017-07-05 13:04 | PCM.PNSURG ---
Subjective Date of Service: Jul 05, 2017 Date of Service: Jul 05, 2017 Subjective: Patient presently reports improved abdominal incisional pain and chronic midline back pain (well-controlled on PO [place]), occasional minimal nausea ( none since last night), no vomiting, tolerating soft, bland diet, continuing to pass flatus and have BM's (loose-more formed), ambulating in hallway without difficulty, no difficulty voiding. Patient reports no shortness of breath, occasional minimal non-productive cough. Objective Vital Sign- Last 8 Hours Date Time Temp Pulse Resp B/P Pulse Ox O2 Delivery O2 Flow Rate FiO2 07/05/17 12:07 96 Room Air 07/05/17 08:12 36.6 66 18 123/54 97 Room Air Intake and Output- Last 8 Hour 07/05/17 Cumulative From/Thru 07:00 06/24/17 14:26 - 07/05/17 06:23 Intake Total 1661 ml 16635 ml Output Total 1075 ml 41188 ml Balance 586 ml 25014 ml Intake Oral 800 ml 12109 ml IV Total 861 ml 30411 ml Output Urine Total 1075 ml 9100 ml Emesis 1400 ml Estimated Blood Loss 800 ml # Voids 2 # Bowel Movements 0 8 Voided urine output: 2300ml last 8hr. shift General: Alert, Oriented X3, Cooperative, No Acute Distress Neck: Supple Lungs: Normal Air Movement Abdomen: Other (soft, minimally-mildly distended (improved from yesterday), appropriate incisional tenderness, no palpable masses, no rebound, no guarding) SURGICAL WOUND : Wound Location/Description Incisions clean/dry/intact, healing well, Steri-strips in place. Several small mildly blistered areas around incisions --> healing Extremities: Other (+SCD boots) Neuro: Normal Speech, Sensation Intact Catheters: None Result Diagram: 07/05/17 0546 07/05/17 0546 Assessment & Plan Impression POD #5, s/p L laparoscopic radical nephrectomy, afebrile, hemodynamically stable , with excellent urine output, with labs this AM showing Hct mildly decreased to 32.5 and Cr slightly decreased to 1.16, with post-op ileus (abdominal X-ray 2 days ago showed gas-distended loops of small and large bowel and stomach ( consistent with ileus), probable gas within rectum, no evidence for bowel obstruction), now doing well with resolved ileus, tolerating full PO, with pain well-controlled on PO pain meds, ambulating Problems: Plan Discharge home today Discharge meds: [place], Colace, Phenergan, Silvadene cream. Discharge appt.: 1 -2 weeks for post-op visit. Case was discussed with Dr. Casiano. As per Dr. Casiano, patient is medically clear for discharge home Hospitalist Dr. Casiano's follow-up appreciated VTE Prophylaxis: SCDs Resuscitation Status: CPR: Attempt Resuscitation David Baer MD Jul 05, 2017 13:04
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
--- NOTE | 2017-07-05 13:44 | NUR ---
Respiratory Received report from NOC RN that patient was desating overnight and O2 was in place to keep patient's oxygen sats up. During this shift the patient has been on room air with an oxygen saturation in the mid 90s during spot checks. The patient was up walking laps in the hallway and when back in his room his oxygen saturation was checked and read 96% on room air. Denies shortness of breath or chest discomfort. MD aware.
--- NOTE | 2017-07-05 15:18 | PCM.DISURG ---
Surgical Discharge Instruction Date of Service Jul 05, 2017 Dates of Hospitalization Date of Hospital Admission Jun 30, 2017 Providers Admitting Physician: David Baer MD Primary Care Physician: Gregory Bassett MD Attending Physician: David Baer MD Discharge Diagnosis Discharge Diagnosis L renal mass Post Operative diagnosis L renal mass Diet Discharge Diet: Other (Soft, bland, heart healthy diet) Activity Discharge Activity-General: No driving while taking narcotic, Other (No strenuous exercise/activity, moderate or heavy lifting (more than 10 lbs.), or abdominal straining for 4-6 weeks after surgery) Dressing and Incisional Care Dressing Care: Allow Steri Stripes to fall off Hygiene: May shower Additional Instructions Discharge Instructions You may shower. No bath/pool/spa for 4 weeks after surgery. Leave Steri-strips in place. Follow-up with Dr. Baer in 1-2 weeks for post-op visit Follow Up Plan Follow-up Provider (F9): David Baer MD Follow-up appointment: Weeks (1-2 weeks for post-op visit) Call your provider for: Fever, Chills, Shortness of breath, Increasing abdominal pain, Vomiting, Increasing wound pain, Warmth to touch, Discharge @ incision, pus discharge, Other (Pain uncontrolled by pain medication) David Baer MD Jul 05, 2017 15:18
[2017-07-05] MEDS ORDERED: SILV25CR6 TOPICAL (16:06)
--- NOTE | 2017-07-05 16:57 | NUR ---
Social Work- Discharge Data: EMR reviewed. Pt is on day 5 of hospitalization. Pt to discharge today, discharge orders are active. No SW needs discussed in multidisciplinary rounds. Pt observed ambulating around the unit. Pt confirmed he will discharge home with his spouse to transport, no DC needs. Assessment: Pt who is independent at baseline. Plan: Pt to d/c home with spouse to transport via POV. No d/c needs identified. UBALDO Olson
--- NOTE | 2017-07-05 17:45 | NUR ---
Discharge Patient discharged home at 1730 with son. Went by wheelchair to personal vehicle with all personal belongings, new prescriptions, and discharge information packet. IV was DC'd intact, patient educated on new medications, activity restrictions, and incisional care. Educational handouts were included in discharge packet.
--- NOTE | 2017-07-06 12:00 | PCM.DC.SUR ---
Discharge Summary Date of Service: Jul 05, 2017 Date of Hospital Admission: Jun 30, 2017 Date of Operation(s): Jun 30, 2017 Date of Discharge: Jul 05, 2017 Diagnosis at Time of Discharge L renal mass Problems: (1) Renal mass ICD Code: N28.89 Operation L laparoscopic radical nephrectomy Brief History and Physical: Patient is a 76yo male with L renal mass. Patient was admitted on 06/30/17 and underwent L laparoscopic radical nephrectomy. Consultants: Hospitalists Dr. Sundeep Casiano and Dr. Wale Sanon Hospital Course: Patient was admitted on 06/30/17 and underwent L laparoscopic radical nephrectomy. Patient had post-op ileus, which resolved, and had post-op hypoxia (likely secondary to atelectasis), which resolved. On POD #5, patient was afebrile, hemodynamically stable, with excellent urine output, with labs showing Hct mildly decreased to 32.5 and Cr slightly decreased to 1.16, doing well with resolved ileus, tolerating full PO, passing flatus and having BM's, with pain well-controlled on PO pain meds, ambulating, voiding without difficulty, and patient was discharged home. Patient was medically cleared for discharge home by hospitalist Dr. Casiano, with recommendation to follow-up with his PCP Dr. Bassett to consider sleep apnea evaluation. Pathology: Pending Disposition: Patient discharged home in stable condition. Follow-up Plan: With Dr. Baer in 1-2 weeks for post-op visit. With his PCP Dr. Bassett to consider sleep apnea evaluation. Ascorbate Calcium (Vitamin C) 500 Mg Tablet 500 MG PO DAILY (Reported) Atenolol (Atenolol) 50 Mg Tablet 50 MG PO DAILY (Reported) Cholecalciferol (Vitamin D3) (Vitamin D3) 2,000 Unit Capsule 2,000 UNIT PO DAILY (Reported) Fish Oil/Dha/Epa (Fish Oil 1,200 mg Fish Oil) 1 Each Capsule 1 EACH PO DAILY ( Reported) Hydrocodone-Acetaminophen 7.5-325 mg (Hydrocodone-Acetaminophen 7.5-325 mg) 1 Each Tablet 1 TABLET PO Q6H PRN PRN For Pain (Reported) Magnesium Oxide (Magnesium) 400 Mg Capsule 400 MG PO DAILY (Reported) Multivitamin (Once Daily) 1 Each Tablet 1 EACH PO DAILY (Reported) Nabumetone (Nabumetone) 750 Mg Tablet 750 MG PO BID (Reported) Silver Sulfadiazine (Silver Sulfadiazine) 400 Gm Cream..g. 1 APPLIC TOPICAL BID Simvastatin (Simvastatin) 10 Mg Tablet 10 MG PO QAM (Reported) Ubidecarenone (Co Q-10) 300 Mg Capsule 300 MG PO DAILY (Reported) Vit B Comp/C/FA/Iron/Vit E (Vitamin B Complex Tablet) 1 Each Tablet 1 EACH PO DAILY (Reported) Vitamin E Mixed (Vitamin E) 400 Unit Capsule 400 UNIT PO DAILY (Reported) Discharge Medications: Lomax, Colace, Phenergan, Silvadene cream copies to: Sundeep Casiano MD; Gregory Bassett MD, Eugene K MD Jul 06, 2017 12:00 Colace prn would be appropriate. -Follow up with primary care doctor for Sleep Apnea evaluation as tends to have lower oxygen readings when sleeping and does admit history of snoring. May benefit from a CPAP machine. Pathology: Pending Disposition: Discharge meds: Lomax, Colace, Phenergan, Silvadene cream. Discharge appt.: 1 -2 weeks for post-op visit. Case was discussed with Dr. Casiano. As per Dr. Casiano, patient is medically clear for discharge home Hospitalist Dr. Casiano's follow-up appreciated Ascorbate Calcium (Vitamin C) 500 Mg Tablet 500 MG PO DAILY (Reported) Atenolol (Atenolol) 50 Mg Tablet 50 MG PO DAILY (Reported) Cholecalciferol (Vitamin D3) (Vitamin D3) 2,000 Unit Capsule 2,000 UNIT PO DAILY (Reported) Fish Oil/Dha/Epa (Fish Oil 1,200 mg Fish Oil) 1 Each Capsule 1 EACH PO DAILY ( Reported) Hydrocodone-Acetaminophen 7.5-325 mg (Hydrocodone-Acetaminophen 7.5-325 mg) 1 Each Tablet 1 TABLET PO Q6H PRN PRN For Pain (Reported) Magnesium Oxide (Magnesium) 400 Mg Capsule 400 MG PO DAILY (Reported) Multivitamin (Once Daily) 1 Each Tablet 1 EACH PO DAILY (Reported) Nabumetone (Nabumetone) 750 Mg Tablet 750 MG PO BID (Reported) Silver Sulfadiazine (Silver Sulfadiazine) 400 Gm Cream..g. 1 APPLIC TOPICAL BID Simvastatin (Simvastatin) 10 Mg Tablet 10 MG PO QAM (Reported) Ubidecarenone (Co Q-10) 300 Mg Capsule 300 MG PO DAILY (Reported) Vit B Comp/C/FA/Iron/Vit E (Vitamin B Complex Tablet) 1 Each Tablet 1 EACH PO DAILY (Reported) Vitamin E Mixed (Vitamin E) 400 Unit Capsule 400 UNIT PO DAILY (Reported) David Baer MD Jul 06, 2017 12:00
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
== END 2017-07-05 17:45 | disposition home or self-care (01) | DRG 657 ==
LOC: SAS 05:55 → OSC 17:29
PROVIDERS: ADMIT Urology; ATTEND Urology
PROC: 0TT14ZZ Resection of Left Kidney, Percutaneous Endoscopic Approach (ICD-10-PCS; principal; 2017-06-30 07:30)
DX: C64.2 Malignant neoplasm of left kidney, except renal pelvis (principal); J98.11 Atelectasis; K56.7 Ileus, unspecified; E78.5 Hyperlipidemia, unspecified; G89.29 Other chronic pain; M54.9 Dorsalgia, unspecified